=== PATIENT | male | born 2000 | race Caucasian/White ===

== ENCOUNTER 2025-02-12 21:42 | Emergency (ER) | payer SELFPAY ==
[~2025-02-12] VITALS: Ht 167.6 cm; Wt 110.7 kg
--- NOTE | 2025-02-12 23:34 | Physician Documentation ---
History of Present Illness ~ Chief Complaint: Rash Stated Complaint: POISON OAK Time Seen by MD: 23:35 OK to notify your PCP?: Yes Source: patient Mode of Arrival: POV Exam Limitations: no limitations HPI 24-year-old male exposed to poison oak yesterday on bilateral arms and legs and chest, abdomen and groin region. He tried using technu cream, calamine lotion, and poison aleah ointment [id number] with no relief. Rash is itchy and nonpainful. Medication Reconciliation Allergies: Coded Allergies: No Known Allergies (Unverified , 02/12/25) Scheduled Prednisone* (Prednisone*), 3 TAB PO DAILY Review of Systems All Other Systems at this time: Reviewed and Negative Physical Exam Vital Signs: RN Vital Signs have been reviewed: Yes, Temperature: 97.8, Source: Temporal, Heart Rate: 74, Respiratory Rate: 18, BP: 123/85, Pulse Oximetry: 97, Weight: 110.650 Oxygen Flow Rate: 0 Pulse Oximetry Reflects: adequate oxygenation Physical Exam General: Alert, no apparent distress. HEENT: PERRL, EOMI, no injection, moist mucous membranes. Neck: Full range of motion. Respiratory: Lungs clear, no respiratory distress. Chest: No accessory muscle use. Cardiovascular: Regular rate and rhythm, no murmurs. Gastrointestinal: Soft, nontender, nondistended. Bowels sounds present. Extremities: Normal range of motion, no deformity. Neurologic: Oriented x4. Psychiatric: Normal mood and affect. Skin: warm and dry. Diffuse large wheals along bilateral arms and legs and anterior portion of whole-body. No rash noted to the posterior side. Progress Results/Orders Results/Orders Completed Orders - CINDY SHERIDAN TAPE TRANSFERRER Prednisone Tablet (Prednisone Tablet) (02/12/25 23:50) Vital Signs 02/12/25 21:56 Temp 97.8 Pulse 74 Resp 18 B/P (MAP) 123/85 Pulse Ox 97 O2 Flow Rate 0 Medical Decision Making Findings 24-year-old male exposed to poison oak yesterday with diffuse rash. He attempted taking [id number] remedies with no success. He is requesting a steroid injection. I discussed this case with Dr. Grey he recommended a 25 day prednisone taper pack instead of a 1 time injection of Kenalog. First-time dose given tonight of prednisone and prescription sent to his pharmacy. He should continue to use the calamine lotion for relief of the itching. He should follow up with his primary care provider in the next 3 days and return back here for any new or worsening symptoms. Departure Disposition: 01 HOME / SELF CARE / HOMELESS Impression: Primary Impression: Poison oak dermatitis Condition: Stable Discharge Instructions: Contact Dermatitis, Pruritus Additional Instructions: Please take the prednisone taper pack as prescribed. You can use the calamine lotion to help ease the itching. Follow up with her primary care provider in the next 3 days and return back here for any new or worsening symptoms. Referrals: NO PRIMARY CARE PROVIDER (PCP) Prescriptions Prednisone* (Prednisone*) 20 Mg Tablet 3 TAB PO DAILY for 25 Days, #10 TAB Day 1-5: Take 3 tablets by mouth daily. Day 6-10: Take 2.5 tablets by mouth daily. Day 11-15: Take 2 tablets by mouth daily. Day 16-20: Take 1.5 tablets by mouth daily. Day 21-25: Take 1 tablet by mouth daily. Prov: CINDY SHERIDAN 02/12/25 Education Educated: Patient Educated regarding: diagnosis, treatment, prognosis, need for follow up Signature Scribe Signature: . Attestation: Scribed for Cindy Sheridan by Cindy Gandhi NP . 02/12/25 23:53 CINDY SHERIDAN February 12, 2025 23:34
[2025-02-12] MEDS ORDERED: PRED20TA PO (23:50)
[2025-02-13] MEDS: predniSONE 20 mg tablet PO ONE (00:02)
[2025-02-13 00:13] VITALS: BP 121/84; PULSE 76; RESP 18; TEMP 97.8; O2SAT 100
== END 2025-02-13 00:04 | disposition home or self-care (01) ==
LOC: ER 21:44
DX: L23.7 Allergic contact dermatitis due to plants, except food (principal); Z79.899 Other long term (current) drug therapy
CPT/HCPCS: 99283; J7512